=== PATIENT | male | born 1965 | race African-American/Black ===

== ENCOUNTER 2021-04-03 11:34 | Emergency (ER) | payer OTHER ==
[~2021-04-03] VITALS: Ht 175.3 cm; Wt 127.3 kg
[~2021-04-03 11:34] MED LIST: HCTZ12.5TAB PO; LIDODERM PATCH TP; NEURONTIN300 MG/CAP PO; NORCO 325 MG-51 TAB PO; PRINIVIL10 MG PO
[2021-04-03 11:45] VITALS: TEMP 98.9
[2021-04-03 13:15] VITALS: BP 129/76; PULSE 60
== END 2021-04-03 13:20 | disposition home or self-care (01) ==
LOC: COL.ER 11:34
DX: S62.611A Displaced fracture of proximal phalanx of left index finger, initial encounter for closed fracture (principal); W19.XXXA Unspecified fall, initial encounter